=== PATIENT | male | born 1945 | race African-American/Black ===

== ENCOUNTER 2023-02-01 17:40 | Emergency (ER) | payer MEDICARE, OTHER ==
[~2023-02-01] VITALS: Ht 175.3 cm; Wt 75.0 kg
[~2023-02-01 17:40] MED LIST: ASPI-1160 PO; BISA-81 PO; EMPA25TA PO; FINA5TAB11 PO; KEPP500 MT
[2023-02-01 17:51] VITALS: BP 142/76; PULSE 80; RESP 18; TEMP 97.5; O2SAT 99
[2023-02-01 20:02] LABS: BASOPHILS % 0.2 % (0.0-2.0); HEMATOCRIT. 40.8 % (42.0-52.0); HEMOGLOBIN. 13.6 g/dL (14.0-18.0); LYMPHOCYTES % 46.3 % (20.0-50.0); MEAN CORPUSCULAR HEMOGLOBIN 30.8 pg (28.0-32.0); MEAN CORPUSCULAR HGB CONC 33.5 g/dL (31.0-37.0); MEAN PLATELET VOLUME 7.9 fl (7.4-10.4); MONOCYTES % 11.5 % (2.0-8.0); PLATELET 178 x1000/uL (130-400); RED BLOOD CELL COUNT 4.43 mill/uL (4.7-6.1); WHITE BLOOD COUNT 5.1 x1000/uL (4.5-11.0)
[2023-02-01 20:19] LABS: CHLORIDE 112 mEq/L (98-107); INDEX HEMOLYSI 3 (1-3); INDEX ICTERIC 1 (1-4); INDEX LIPEMIC 1 (1-3); POTASSIUM 4.1 mEq/L (3.5-5.1); SODIUM 142 mEq/L (136-145)
[2023-02-01] MEDS ORDERED: LORAZEPAM 1MG TABLET PO ONE (20:30)
[2023-02-01 20:31] LABS: ALANINE AMINOTRANSFERASE 37 IU/L (13-61); ALBUMIN 2.9 g/dL (3.4-5.0); ASPARTATE AMINOTRANSFERASE 16 IU/L (15-37); BILIRUBIN TOTAL 0.2 mg/dL (0.1-1.0); CALCIUM 8.4 mg/dL (8.5-10.1); CARBON DIOXIDE 31 mEq/L (21-32); GLUCOSE 170 mg/dL (70-105); NT PRO B-TYPE NATRIURETIC PEP 111 pg/mL (5-125); PROTEIN TOTAL 6.1 g/dL (6.0-8.3); UREA NITROGEN BLOOD 14 mg/dL (7-21)
[2023-02-01] MEDS ORDERED: LORA-250 MT (21:10)
[2023-02-01] MEDS ORDERED: LORAZEPAM 1MG TABLET PO NR (22:45)
== END 2023-02-01 22:53 | disposition home or self-care (01) ==
LOC: ER 17:40
DX: F03.911 Unspecified dementia, unspecified severity, with agitation (principal); R44.0 Auditory hallucinations; R44.1 Visual hallucinations; E11.9 Type 2 diabetes mellitus without complications; I10 Essential (primary) hypertension; R56.9 Unspecified convulsions
CPT/HCPCS: 36415; 71045; 80053; 82962; 83880; 85025; 99284

== ENCOUNTER 2023-04-15 01:52 | Emergency (ER) | payer MEDICARE, OTHER ==
[~2023-04-15] VITALS: Ht 175.3 cm; Wt 86.0 kg
[~2023-04-15 01:52] MED LIST changes: +LORA-250 MT
[2023-04-15 02:04] VITALS: O2SAT 98
[2023-04-15] MEDS ORDERED: KETOROLAC 60MG/2ML VIAL IM ONE (02:30)
[2023-04-15] MEDS ORDERED: IBUP-2029 MT (05:50)
[2023-04-15] MEDS ORDERED: T3 PO (05:50)
[2023-04-15 06:36] VITALS: TEMP 98.5
[2023-04-15 08:18] VITALS: BP 168/75; PULSE 95; RESP 18
== END 2023-04-15 08:21 | disposition home or self-care (01) ==
LOC: ER 01:58
DX: R07.81 Pleurodynia (principal); F03.90 Unspecified dementia, unspecified severity, without behavioral disturbance, psychotic disturbance, mood disturbance, and anxiety; I10 Essential (primary) hypertension; Z79.899 Other long term (current) drug therapy
CPT/HCPCS: 99285; 71101; 96372; J1885